=== PATIENT | female | born 1945 | race Caucasian/White ===

== ENCOUNTER → 2016-09-25 | Outpatient (CLI) | payer OTHER, SELFPAY ==
[~2016-09-25] MED LIST: ATENOLOL 25 MG25 M1 PO; BAYER CHEWABLE81 MG PO; CARVEDILOL6.25 MG PO; COZAAR100 MG PO; IBUPROFEN 800800 M1 PO; NEXIUM40 MG PO; PLAVIX 75 MG TA75 M1 PO; TYLENOL325 MG PO; VENTOLIN HFA 1818 GM INH
--- NOTE | ~2016-09-25 | 2DMMODE ---
[facility] [employer] [place] [address] 2 D/M-MODE ECHOCARDIOGRAM Name: KAYA SILVESTRE Room #: REG [facility]#: [id number] Admission: 09/25/16 Attend Phys: Dhiraj Turner MD Discharge: Date of : 45 Date of Service: 09/25/16 1723 Report #: [id number] THIS REPORT FOR: //name// APPROVED REPORT Study performed: 09/25/2016 09:20:15 EXAM: Comprehensive 2D, Doppler, and color-flow Echocardiogram Patient Location: Out-Patient Status: routine Other Information Study Quality: Good Indications CAD Hypertension/HDD 2D Dimensions RVDd: 35.06 mm LVEF(%): 56.82 (>50%) IVSd: 13.46 (7-11mm) LVOT Diam: 17.94 (18-24mm) LVDd: 49.05 mm PWd: 13.88 (7-11mm) Ascending Ao: 33.10 (22-36mm) LVDs: 34.41 (25-40mm) Aortic Root: 29.16 mm Mendez's LVEF: 56.82 % Volumes Left Atrial Volume (Systole) Single Plane 4CH: 43.14 mL Single Plane 2CH: 58.06 mL LA ESV Index: 34.00 mL/m2 Aortic Valve AoV Peak Evaristo.: 2.55 m/s AO Peak Gr.: 24.25 mmHg LVOT Max P.71 mmHg AO Mean Gr.: 15.43 mmHg AO V2 Mean: 1.89 m/s LVOT Max V: 1.29 m/s AO V2 VTI: 68.00 cm SAMANTHA Vmax: 1.28 cm2 Mitral Valve E/A Ratio: 1.1 MV Decel. Time: 258.16 ms MV E Max Evaristo.: 0.86 m/s [facility] [address] [place] [address] 2 D/M-MODE ECHOCARDIOGRAM Name: KAYA SILVESTRE GAIL Room #: REG [facility]#: [id number] Admission: 09/25/16 Attend Phys: Dhiraj Turner MD Discharge: Date of : 45 Date of Service: 09/25/16 1723 Report #: [id number] MV A Evaristo.: 0.78 m/s MV PHT: 74.87 ms IVRT: 73.82 ms Pulmonary Valve PV Peak Evaristo.: 1.18 m/s PV Peak Gr.: 5.57 mmHg Pulmonary Vein P Vein S: 0.57 m/s P Vein A: 0.28 m/s P Vein D: 0.39 m/s P Vein A Dur.: 120.0 msec P Vein S/D Ratio: 1.46 Tricuspid Valve TR Peak Evaristo.: 2.80 m/s RAP Estimate: 5.00 mmHg TR Peak Gr.: 31.39 mmHg PA Pressure: 36.00 mmHg Left Ventricle The left ventricle is normal size. There is normal LV segmental wall motion. Mild concentric left ventricular hypertrophy. The left ventricular systolic function is normal. The left ventricular ejection fraction is within the normal range. LVEF is 55-60%. Grade II - pseudonormal filling dynamics. Right Ventricle The right ventricle is normal size. The right ventricular systolic function is normal. Atria Left atrium is at the upper limits of normal. The right atrium size is normal. Aortic Valve Aortic valve is calcified. Aortic valve leaflets are thickened. Trace aortic regurgitation. Mild aortic stenosis. Mitral Valve The mitral valve is normal in structure. Trace mitral regurgitation. Tricuspid Valve The tricuspid valve is normal in structure. There is mild tricuspid regurgitation. The right atrial pressure is estimated at 5 mmHg. There is mild pulmonary hypertension with an estimated PAP of [address] [address] 2 D/M-MODE ECHOCARDIOGRAM Name: KAYA SILVESTRE Room #: REG [facility]#: [id number] Admission: 09/25/16 Attend Phys: Dhiraj Turner MD Discharge: Date of : 45 Date of Service: 09/25/16 1723 Report #: [id number] Pulmonic Valve The pulmonary valve is normal in structure. Trace pulmonic regurgitation. Great Vessels The aortic root is normal in size. The ascending aorta is normal in size. IVC is small. Pericardium There is no pericardial effusion. <Conclusion> The left ventricle is normal size. The left ventricular systolic function is normal. The right ventricle is normal size. Left atrium is at the upper limits of normal. Mild aortic stenosis. The mitral valve is normal in structure. There is mild tricuspid regurgitation. The right atrial pressure is estimated at 5 mmHg. There is mild pulmonary hypertension with an estimated PAP of 36 mmHg. There is no pericardial effusion. <ELECTRONICALLY SIGNED> By: Dhiraj Turner MD 09/25/161722 22 22 Dhiraj Turner MD /INF
== END ==
LOC: CV 10:05
DX: I25.10 Atherosclerotic heart disease of native coronary artery without angina pectoris (principal); I10 Essential (primary) hypertension; I08.3 Combined rheumatic disorders of mitral, aortic and tricuspid valves

== ENCOUNTER → 2017-10-02 | Outpatient (CLI) | payer OTHER, SELFPAY ==
[~2017-10-02] VITALS: Ht 162.6 cm; Wt 69.9 kg
[~2017-10-02] MED LIST changes: +AMLODIPINE BESY10 MG PO; +CLONIDINE HCL0.3 M3 PO; +COREG25 MG PO; +MAXZIDE-25 MG1 EACH PO
--- NOTE | ~2017-10-02 | CATHLAB ---
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 The Right Groin^ was infiltrated with 1% Lidocaine subcutaneous anesthesia. A PINNACLE 4FR Sheath #[id number] sheath was inserted into the RFA^. Coronary angiography was performed using coronary diagnostic catheters. The right coronary system was accessed and visualized with a JR 4 catheter. The left coronary system was accessed and visualized with a JL 4 catheter. The left ventricle was accessed and visualized with a Pigtail catheter. Left ventricular/Aortic Valve gradient assessed via catheter pullback. Left ventriculogram was performed in DELANEY projection. Hemostasis was obtained with manual pressure following sheath removal without any complications. The patient tolerated the procedure well and there were no complications associated with the procedure. There was no hematoma. [facility] [place] [address] INVASIVE PROCEDURE REPORT Name: KAYA SILVESTRE GAIL Room #: REG [facility]#: [id number] Admission: 10/02/17 Attend Phys: Dhiraj Turner MD Discharge: Date of : 45 Date of Service: 10/02/17 1446 Report #: [id number] Intraoperative Conscious Sedation Sedation start time: 11:23 Case end Time: 11:40 Fentanyl 50 mcg Versed 1.5 mg Fluoro Time: 2.11 minutes Dose: DAP 2260.79 cGycm2 292 mGy Contrast Type and Amount: Omnipaque 100 ml Coronary Angiography The patient's coronary anatomy is right dominant. Diagnostic Cath Left Main There is a severe, complex stenosis involving the distal left main artery and the bifurcation into both the LAD and left circumflex arteries. LAD Severe ostial stenosis. Diagonal 1 Small-caliber vessel with a moderate stenosis. Diagonal 2 Moderate size caliber vessel, with no flow-limiting lesions. Circumflex Severe stenosis at the ostium. OM1 Moderate size caliber vessel, with no flow-limiting lesions. Right Coronary Dominant vessel with a severe stenosis in the mid segment, 70%. R PDA Patent vessel, no flow-limiting lesions. RPLV Patent vessel, with no flow-limiting lesions. Left Ventriculography The left ventricle is normal in size with normal contractility. The left ventricular ejection fraction is estimated to be 60%. Hemodynamics The aortic pressure is 156/67 mmHg with a mean of 106 mmHg. The left ventricular pressure is 143/11 mmHg with a mean of mmHg. The left ventricular end diastolic pressure is 22 mmHg. Conclusion 1. 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 2. Severe stenosis in a dominant RCA. 3. Normal LV systolic function. [facility] [address] [place] [address] INVASIVE PROCEDURE REPORT Name: KAYA SILVESTRE Room #: REG CL [facility]#: [id number] Admission: 10/02/17 Attend Phys: Dhiraj Turner MD Discharge: Date of : 45 Date of Service: 10/02/17 1446 Report #: [id number] 4. Recommend urgent evaluation for CABG. 5. The patient tolerated the procedure without any complications. <ELECTRONICALLY SIGNED> By: Dhiraj Turner MD 10/02/17 1446 1446 1446 Dhiraj Turner MD /INF
[2017-10-02 09:36] VITALS: BP 139/50
[2017-10-02 09:47] LABS: HEMATOCRIT 34.2 % (37.0-47.0); HEMOGLOBIN 11.9 gm/dL (12.0-15.0); MCH 28.3 pg (26.0-34.0); MCHC 34.7 g/dL (28.0-37.0); MCV 81.6 fL (80.0-100.0); RBC 4.2 mil/uL (4.20-5.00); RDW 14.3 % (10.5-14.5); WBC 9.5 thou/uL (4.0-11.0)
[2017-10-02 09:58] LABS: CALCIUM 9.2 mg/dL (8.5-10.1); CREATININE 1.1 mg/dL (0.6-1.0); POTASSIUM 3.9 mmol/L (3.5-5.1)
== END ==
LOC: CATH 08:52
PROVIDERS: Internal Medicine Cardiovascular Disease
DX: I25.110 Atherosclerotic heart disease of native coronary artery with unstable angina pectoris (principal); E78.00 Pure hypercholesterolemia, unspecified; I10 Essential (primary) hypertension; Z98.890 Other specified postprocedural states; Z82.49 Family history of ischemic heart disease and other diseases of the circulatory system; F17.210 Nicotine dependence, cigarettes, uncomplicated

== ENCOUNTER → 2017-10-23 | Outpatient (CLI) | payer OTHER, SELFPAY | LOC: RAD 12:31 | DX: J90 Pleural effusion, not elsewhere classified (principal); I70.0 Atherosclerosis of aorta; I10 Essential (primary) hypertension; Z95.1 Presence of aortocoronary bypass graft; Z87.891 Personal history of nicotine dependence ==

== ENCOUNTER → 2019-08-09 | Outpatient (CLI) | payer OTHER | LOC: SJCVC 15:47 | DX: R94.31 Abnormal electrocardiogram [ECG] [EKG] (principal); I21.29 ST elevation (STEMI) myocardial infarction involving other sites; I25.10 Atherosclerotic heart disease of native coronary artery without angina pectoris; I10 Essential (primary) hypertension; E78.00 Pure hypercholesterolemia, unspecified; R60.9 Edema, unspecified ==

== ENCOUNTER → 2019-08-16 | Outpatient (CLI) | payer OTHER | LOC: SJCVCIMAG 13:00 | DX: I25.10 Atherosclerotic heart disease of native coronary artery without angina pectoris (principal); I10 Essential (primary) hypertension; E78.00 Pure hypercholesterolemia, unspecified; R60.9 Edema, unspecified; E78.5 Hyperlipidemia, unspecified; Z87.891 Personal history of nicotine dependence; Z79.82 Long term (current) use of aspirin; Z79.899 Other long term (current) drug therapy ==

== ENCOUNTER → 2019-09-09 | Outpatient (CLI) | payer OTHER | LOC: SJCVC 15:32 | PROVIDERS: ATTEND Internal Medicine Cardiovascular Disease | DX: I25.10 Atherosclerotic heart disease of native coronary artery without angina pectoris (principal); I10 Essential (primary) hypertension; I48.91 Unspecified atrial fibrillation; E78.5 Hyperlipidemia, unspecified; Z95.1 Presence of aortocoronary bypass graft; Z95.5 Presence of coronary angioplasty implant and graft; F17.200 Nicotine dependence, unspecified, uncomplicated; Z79.899 Other long term (current) drug therapy ==

== ENCOUNTER → 2020-03-27 | Outpatient (CLI) | payer OTHER | LOC: SJCVCIMAG 02-17 08:41 | PROVIDERS: ATTEND Internal Medicine Cardiovascular Disease | DX: I08.0 Rheumatic disorders of both mitral and aortic valves (principal); R94.31 Abnormal electrocardiogram [ECG] [EKG]; R00.1 Bradycardia, unspecified; I25.10 Atherosclerotic heart disease of native coronary artery without angina pectoris; E78.00 Pure hypercholesterolemia, unspecified; I10 Essential (primary) hypertension; R60.9 Edema, unspecified; I48.91 Unspecified atrial fibrillation; M19.90 Unspecified osteoarthritis, unspecified site; F17.200 Nicotine dependence, unspecified, uncomplicated; Z95.828 Presence of other vascular implants and grafts; Z95.1 Presence of aortocoronary bypass graft; Z79.82 Long term (current) use of aspirin; Z79.899 Other long term (current) drug therapy ==

== ENCOUNTER → 2020-09-15 | Outpatient (CLI) | payer OTHER | LOC: SJCVC 13:51 | PROVIDERS: ATTEND Internal Medicine Cardiovascular Disease | DX: R94.31 Abnormal electrocardiogram [ECG] [EKG] (principal); R00.1 Bradycardia, unspecified; I10 Essential (primary) hypertension; I25.10 Atherosclerotic heart disease of native coronary artery without angina pectoris; E78.00 Pure hypercholesterolemia, unspecified; R60.9 Edema, unspecified; I48.91 Unspecified atrial fibrillation; M19.90 Unspecified osteoarthritis, unspecified site; E78.5 Hyperlipidemia, unspecified; F17.210 Nicotine dependence, cigarettes, uncomplicated; Z79.899 Other long term (current) drug therapy; Z95.1 Presence of aortocoronary bypass graft ==

== ENCOUNTER → 2021-04-27 | Outpatient (CLI) | payer OTHER | LOC: SJCVCIMAG 07:08 | PROVIDERS: ATTEND Internal Medicine Cardiovascular Disease | DX: I08.3 Combined rheumatic disorders of mitral, aortic and tricuspid valves (principal); R94.31 Abnormal electrocardiogram [ECG] [EKG]; I25.10 Atherosclerotic heart disease of native coronary artery without angina pectoris; E78.00 Pure hypercholesterolemia, unspecified; I10 Essential (primary) hypertension; R60.9 Edema, unspecified; F17.210 Nicotine dependence, cigarettes, uncomplicated; E78.5 Hyperlipidemia, unspecified; Z88.8 Allergy status to other drugs, medicaments and biological substances; Z79.82 Long term (current) use of aspirin; Z79.899 Other long term (current) drug therapy; Z95.818 Presence of other cardiac implants and grafts; Z95.1 Presence of aortocoronary bypass graft; Z82.49 Family history of ischemic heart disease and other diseases of the circulatory system ==

== ENCOUNTER → 2021-05-11 | Outpatient (CLI) | payer OTHER | LOC: SJCVC 10:01 | PROVIDERS: ATTEND Internal Medicine Cardiovascular Disease | DX: R94.31 Abnormal electrocardiogram [ECG] [EKG] (principal); I10 Essential (primary) hypertension; I25.10 Atherosclerotic heart disease of native coronary artery without angina pectoris; E78.00 Pure hypercholesterolemia, unspecified; I35.0 Nonrheumatic aortic (valve) stenosis; F17.210 Nicotine dependence, cigarettes, uncomplicated; M19.90 Unspecified osteoarthritis, unspecified site; I48.91 Unspecified atrial fibrillation; E78.5 Hyperlipidemia, unspecified; J90 Pleural effusion, not elsewhere classified; Z79.82 Long term (current) use of aspirin; Z79.899 Other long term (current) drug therapy; Z98.890 Other specified postprocedural states; Z95.5 Presence of coronary angioplasty implant and graft; Z88.8 Allergy status to other drugs, medicaments and biological substances ==